=== PATIENT | male | born 1960 | race Caucasian/White ===

== ENCOUNTER 2022-03-07 00:15 | Inpatient (IN) ==
[2022-03-07] MEDS ORDERED: SODIUM CHLORIDE 0.9% 1000ML 500 ML IV ONE (00:32)
--- NOTE | 2022-03-07 00:34 | Emergency Department Note ---
Impression & Plan Altered mental status ADMIT ED Provider Note HPI: The patient is a 61-year-old male with history of CVA, who presents the emergency department with a chief complaint of confusion. 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 He was sending cars through and they were not supposed to be going through, he seemed slow to respond to questions and generally just did not seem to be himself. He does have a history of a recent CVA that he tells me was in February 2022, he received care at that time at [facility] in [place] and he tells me he did have a carotid stent placed. On arrival here to the ED the patient is slow to respond to some of my questions but he is alert and oriented, he does not exhibit any focal deficits on arrival. He is hypertensive at 175/101 but otherwise hemodynamically stable on arrival, patient denies any alcohol or drug use. ROS: -Neuro: Altered mental status/confusion *10 point review systems was conducted and is otherwise negative unless stated above *Outpatient medications and allergy history reviewed PE: General: Alert, NAD HEENT: Normocephalic, atraumatic Eyes: Extraocular eye movement is intact, no scleral erythema Pulmonary: Clear to auscultation bilaterally, no wheezing Cardio: Regular rate and rhythm GI: Abdomen is soft, nontender : No suprapubic tenderness MSK: No evidence of trauma or malformation of the extremities, no edema Skin: No evidence of rash Neuro: Alert, no focal deficits no ataxia on [id number] testing bilaterally, symmetrical facial movements are appreciated Psychiatric: Cooperative cafeteria monitor: - An order was placed for continuous cardiac monitoring - Patient was noted to be in rhythm with a rate of 70 EKG: Rate: 80 Rhythm: Sinus rhythm Intervals: Within normal limits ST changes: No ST elevation Time: 0023 NIH STROKE SCALE: 1A: Level of consciousness Alert; keenly responsive 0 1B: Ask month and age Both questions right 0 1C: 'Blink eyes' & 'squeeze hands' Performs both tasks 0 2: Horizontal extraocular movements Normal 0 3: Visual galicia No visual loss 0 4: Facial palsy Normal symmetry 0 5A: Left arm motor drift No drift for 10 seconds 0 5B: Right arm motor drift No drift for 10 seconds 0 6A: Left leg motor drift No drift for 5 seconds 0 6B: Right leg motor drift No drift for 5 seconds 0 7: Limb Ataxia No ataxia 0 8: Sensation Normal; no sensory loss 0 9: Language/aphasia Normal; no aphasia 0 10: Dysarthria Normal 0 11: Extinction/inattention No abnormality 0 TOTAL NIH SCORE =0 Preliminary Findings Only See Final Report For Complete Findings CT HEAD: No intracranial hemorrhage. Encephalomalacia involving the left parietal and occipital regions is presumed subacute to chronic. No significant mass effect or midline shift. No ventriculomegaly. Paranasal sinuses and mastoid air cells are well-aerated. Radiologist: Efren Lockett MD CTA HEAD: Atherosclerotic changes of the cavernous and supraclinoid internal carotid a rteries. The arteries are patent. There is asymmetric 50% luminal narrowing of the distal supraclinoid left internal carotid artery. No dissection or occlusion. The left M1 segment and distal middle cerebral branches are patent. The A1 segments and anterior cerebral arteries are patent. The right M1 segment and distal middle cerebral branches are patent. The distal left vertebral artery is small in caliber and predominantly terminates at the inferior left cerebellum. The distal right vertebral artery is dominant and feeds the basilar artery. The posterior cerebral arteries are patent. A small right posterior communicating artery suggested. No abnormal parenchymal enhancement. The visualized dural sinuses are unremarkable. Radiologist: Efren Lockett MD CTA NECK: Limited by a swallowing/motion artifact with significant image degradation through the mid to superior cervical region. There is a long stent extending from the carotid bifurcation throughout the cervical left internal carotid artery, which is patent. The common carotid arteries are patent. The right carotid bifurcation is limited by artifact without obvious occlusion or critical stenosis. Atherosclerotic changes are suggested. The right internal carotid artery otherwise appears to be widely patent. The vertebral arteries are patent with the right vertebral artery dominant. No dissection or narrowing. The aortic arch demonstrates atherosclerotic changes. There is mild narrowing of the ostium of the left common carotid artery. Fibrotic changes in the posterior medial aspect of the left upper lobe and bilateral apical capping noted. Radiologist: Efren Lockett MD Study ready at 01:52 and initial results transmitted at 02:06 Communications: Clear Time Type Notes 03/07/22 02:[address] prasanth, called Dr. Moreland on 03/07 02:14 (- 04:00) Medical Decision Making: The patient is a 61-year-old gentleman with history of CVA, peripheral vascular disease, had a carotid stent placed after a stroke in February 2022 at [facility] in [place], presented to the emergency department with some altered mental status that was noted by his coworkers on a road crew. On arrival here to the ED the patient is slow to respond to my questions but he does not have any focal deficits. His symptoms are unclear in onset, he is not considered a tPA candidate, patient tells me he does not remember what happened today at work and he is a somewhat limited historian. CT imaging of the head as well as CT angiography did not show any evidence of acute intracranial bleeding, no evidence of large vessel occlusion. Patient's previous carotid stent appears to be patent. There is mention of some subacute appearing encephalomalacia on CT imaging of the head without contrast. There is also noted atherosclerotic changes on CTA of the head. Lab work is otherwise largely unremarkable, alcohol level is negative. Patient was given aspirin in the ED, on my reassessment he is resting comfortably in bed and remains hemodynamically stable. I feel he may have had a TIA or possibly a small stroke that are causing his symptoms. He has multiple risk factors obviously with recent TIA and imaging findings of atherosclerosis on CTA. I discussed the above findings with the on-call hospitalist for [facility], Dr. García, and the patient was admitted to a telemetry bed in stable condition for further care and MRI imaging to be obtained. Diagnosis: 1. Transient altered mental status 2. Strokelike symptoms 3. Bilateral sclerosis of the intracranial vessels 4. Subacute encephalomalacia on CT imaging of the head Disposition: ADMIT Juliano Moreland, DO Emergency Medicine Past Med/Surg History Social History Smoking Status: Current every day smoker Preferred Language: Telugu Feels Safe at Home: Yes Results & Data (ED) Vital Signs Vital Signs - 24 hr 03/07/22 00:22 03/07/22 00:24 03/07/22 02:22 Temperature 36.7 C Temperature Source Oral Pulse Rate 87 Pulse Rate [Finger] 66 Respiratory Rate 22 18 Blood Pressure 175/101 H Blood Pressure [Right Arm] 160/91 H Blood Pressure Mean 125 Blood Pressure Mean [Right Arm] 114 Pulse Oximetry 98 97 99 Oxygen Delivery Method Room Air Room Air Room Air Sepsis Recent Fever Within 48 Hours No Sepsis New/Unexplained Change in Mental Status N/A Sepsis Action Taken by Nursing No Action Required Laboratory Data Result diagrams: 03/07/22 00:21 03/07/22 00:21 Lab Results 03/07/22 03/07/22 03/07/22 Range/Units 00:21 00:21 00:21 WBC 8.70 (4.8-10.8) K/ul RBC 4.46 L (4.63-6.08) M/uL Hgb 14.8 (14.0-18.0) g/dl Hct 44.3 (40.1-51.0) % MCV 99.3 (80.0-100.0) fL MCH 33.2 (25.0-34.0) pg MCHC 33.4 (32.0-36.0) g/dL RDW Std Deviation 51.3 H (36.4-46.3) fL RDW Coeff of Ted 13.9 (11.5-14.5) % Plt Count 236 (130-400) K/uL MPV 12.8 H (9.4-12.4) fL Immature Gran % (Auto) 0.2 % Neut % (Auto) 60.0 % Lymph % (Auto) 26.3 % [place] % (Auto) 11.3 % Eos % (Auto) 1.4 % Baso % (Auto) 0.8 % Neut # (Auto) 5.22 (1.4-6.5) K/uL Lymph # (Auto) 2.29 (1.2-3.4) K/uL [place] # (Auto) 0.98 H (0.24-0.82) K/uL Eos # (Auto) 0.12 (0-0.50) K/uL Baso # (Auto) 0.07 (0-0.2) K/uL Immature Gran # (Auto) 0.02 (0.00-0.02) K/uL PT 10.3 (9.0-12.0) Seconds INR 1.0 (0.9-1.1) APTT 24.2 (21.0-31.0) Seconds PTT Ratio 0.9 Sodium 136 (136-145) mmol/L Potassium 3.9 (3.5-5.1) mmol/L Chloride 102 (98-107) mmol/L Carbon Dioxide 25 (21-32) mmol/L Anion Gap 9 (3-11) BUN 33 H (6-23) mg/dl Creatinine 0.97 (0.6-1.4) mg/dl Est Cr Clr Drug Dosing 59.1 ml/min Est GFR ( Amer) 97.9 ml/min Est GFR (Non-Af Amer) 84.5 ml/min BUN/Creatinine Ratio 34.0 H (10-20) Glucose 90 (70-99(Fasting)) mg/dl POC Glucose (70-99) mg/dl Calcium 9.7 (8.5-10.1) mg/dl Magnesium 2.1 (1.7-2.4) mg/dl Total Bilirubin 0.7 (0.2-1.0) mg/dl AST 22 (13-39) U/L ALT 20 (7-52) U/L Alkaline Phosphatase 55 (34-104) U/L Ammonia (18-72) umol/L Troponin I High Sens 6.4 (0-20) pg/ml Total Protein 7.1 (6.0-8.3) gm/dl Albumin 4.5 (3.4-5.0) gm/dl Globulin 2.6 (2.5-4.0) gm/dl Albumin/Globulin Ratio 1.7 (0.9-2) Urine Color Urine Appearance (Clear) Urine pH (4.5-7.5) Ur Specific [place] (1.000-1.030) Urine Protein (Negative) Urine Glucose (UA) (Negative) Urine Ketones (Negative) Urine Blood (Negative) Urine Nitrite (Negative) Urine Bilirubin (Negative) Urine Urobilinogen (Negative) Ur Leukocyte Esterase (Negative) Urine Opiates Screen (Neg) Ur Methadone, Qual (Neg) Urine Barbiturates (Neg) Ur Phencyclidine (PCP) (Neg) U Amphetamin/Meth Scrn (Neg) MDMA (Ecstasy) Screen (Neg) U Benzodiazepines Scrn (Neg) Ur Cocaine Metabolite (Neg) U Marijuana (THC) Screen (Neg) Ethyl Alcohol mg/dL (<10.0) mg/dl SARS-CoV-2, RNA, NAAT (NEGATIVE) 03/07/22 03/07/22 03/07/22 Range/Units 00:37 00:37 00:37 WBC (4.8-10.8) K/ul RBC (4.63-6.08) M/uL Hgb (14.0-18.0) g/dl Hct (40.1-51.0) % MCV (80.0-100.0) fL MCH (25.0-34.0) pg MCHC (32.0-36.0) g/dL RDW Std Deviation (36.4-46.3) fL RDW Coeff of Ted (11.5-14.5) % Plt Count (130-400) K/uL MPV (9.4-12.4) fL Immature Gran % (Auto) % Neut % (Auto) % Lymph % (Auto) % [place] % (Auto) % Eos % (Auto) % Baso % (Auto) % Neut # (Auto) (1.4-6.5) K/uL Lymph # (Auto) (1.2-3.4) K/uL [place] # (Auto) (0.24-0.82) K/uL Eos # (Auto) (0-0.50) K/uL Baso # (Auto) (0-0.2) K/uL Immature Gran # (Auto) (0.00-0.02) K/uL PT (9.0-12.0) Seconds INR (0.9-1.1) APTT (21.0-31.0) Seconds PTT Ratio Sodium (136-145) mmol/L Potassium (3.5-5.1) mmol/L Chloride (98-107) mmol/L Carbon Dioxide (21-32) mmol/L Anion Gap (3-11) BUN (6-23) mg/dl Creatinine (0.6-1.4) mg/dl Est Cr Clr Drug Dosing ml/min Est GFR ( Amer) ml/min Est GFR (Non-Af Amer) ml/min BUN/Creatinine Ratio (10-20) Glucose (70-99(Fasting)) mg/dl POC Glucose (70-99) mg/dl Calcium (8.5-10.1) mg/dl Magnesium (1.7-2.4) mg/dl Total Bilirubin (0.2-1.0) mg/dl AST (13-39) U/L ALT (7-52) U/L Alkaline Phosphatase (34-104) U/L Ammonia (18-72) umol/L Troponin I High Sens (0-20) pg/ml Total Protein (6.0-8.3) gm/dl Albumin (3.4-5.0) gm/dl Globulin (2.5-4.0) gm/dl Albumin/Globulin Ratio (0.9-2) Urine Color Yellow Urine Appearance Clear (Clear) Urine pH 5.5 (4.5-7.5) Ur Specific [place] 1.018 (1.000-1.030) Urine Protein Negative (Negative) Urine Glucose (UA) Negative (Negative) Urine Ketones Negative (Negative) Urine Blood Negative (Negative) Urine Nitrite Negative (Negative) Urine Bilirubin Negative (Negative) Urine Urobilinogen Negative (Negative) Ur Leukocyte Esterase Negative (Negative) Urine Opiates Screen Neg (Neg) Ur Methadone, Qual Neg (Neg) Urine Barbiturates Neg (Neg) Ur Phencyclidine (PCP) Neg (Neg) U Amphetamin/Meth Scrn Neg (Neg) MDMA (Ecstasy) Screen Neg (Neg) U Benzodiazepines Scrn Neg (Neg) Ur Cocaine Metabolite Neg (Neg) U Marijuana (THC) Screen Neg (Neg) Ethyl Alcohol mg/dL < 10.0 (<10.0) mg/dl SARS-CoV-2, RNA, NAAT (NEGATIVE) 03/07/22 03/07/22 03/07/22 Range/Units 00:45 00:46 02:43 WBC (4.8-10.8) K/ul RBC (4.63-6.08) M/uL Hgb (14.0-18.0) g/dl Hct (40.1-51.0) % MCV (80.0-100.0) fL MCH (25.0-34.0) pg MCHC (32.0-36.0) g/dL RDW Std Deviation (36.4-46.3) fL RDW Coeff of Ted (11.5-14.5) % Plt Count (130-400) K/uL MPV (9.4-12.4) fL Immature Gran % (Auto) % Neut % (Auto) % Lymph % (Auto) % [place] % (Auto) % Eos % (Auto) % Baso % (Auto) % Neut # (Auto) (1.4-6.5) K/uL Lymph # (Auto) (1.2-3.4) K/uL [place] # (Auto) (0.24-0.82) K/uL Eos # (Auto) (0-0.50) K/uL Baso # (Auto) (0-0.2) K/uL Immature Gran # (Auto) (0.00-0.02) K/uL PT (9.0-12.0) Seconds INR (0.9-1.1) APTT (21.0-31.0) Seconds PTT Ratio Sodium (136-145) mmol/L Potassium (3.5-5.1) mmol/L Chloride (98-107) mmol/L Carbon Dioxide (21-32) mmol/L Anion Gap (3-11) BUN (6-23) mg/dl Creatinine (0.6-1.4) mg/dl Est Cr Clr Drug Dosing ml/min Est GFR ( Amer) ml/min Est GFR (Non-Af Amer) ml/min BUN/Creatinine Ratio (10-20) Glucose (70-99(Fasting)) mg/dl POC Glucose 92 (70-99) mg/dl Calcium (8.5-10.1) mg/dl Magnesium (1.7-2.4) mg/dl Total Bilirubin (0.2-1.0) mg/dl AST (13-39) U/L ALT (7-52) U/L Alkaline Phosphatase (34-104) U/L Ammonia 19.0 (18-72) umol/L Troponin I High Sens (0-20) pg/ml Total Protein (6.0-8.3) gm/dl Albumin (3.4-5.0) gm/dl Globulin (2.5-4.0) gm/dl Albumin/Globulin Ratio (0.9-2) Urine Color Urine Appearance (Clear) Urine pH (4.5-7.5) Ur Specific [place] (1.000-1.030) Urine Protein (Negative) Urine Glucose (UA) (Negative) Urine Ketones (Negative) Urine Blood (Negative) Urine Nitrite (Negative) Urine Bilirubin (Negative) Urine Urobilinogen (Negative) Ur Leukocyte Esterase (Negative) Urine Opiates Screen (Neg) Ur Methadone, Qual (Neg) Urine Barbiturates (Neg) Ur Phencyclidine (PCP) (Neg) U Amphetamin/Meth Scrn (Neg) MDMA (Ecstasy) Screen (Neg) U Benzodiazepines Scrn (Neg) Ur Cocaine Metabolite (Neg) U Marijuana (THC) Screen (Neg) Ethyl Alcohol mg/dL (<10.0) mg/dl SARS-CoV-2, RNA, NAAT NEGATIVE (NEGATIVE) Administered Medications Discontinued Medications Aspirin (Aspirin Chew 324 Mg) 324 mg PO NOW STA Stop: 03/07/22 02:36 Last Admin: 03/07/22 02:48 Dose: 324 mg Documented By: ALESSIO Sodium Chloride (Nss 1000ml) 500 mls @ 999 mls/hr IV .Q31M ONE Stop: 03/07/22 01:02 Last Infusion: 03/07/22 02:44 Dose: 0 mls/hr Documented By: Admin: 03/07/22 01:51 Dose: 999 mls/hr Documented By: ALESSIO Ioversol (Optiray 300 500ml) 125 ml IV ONCE ONE Stop: 03/07/22 01:44 Last Admin: 03/07/22 01:44 Dose: 113 ml Documented By: PING Discharge Plan Visit Data Chief Complaint: Altered Mental Status ED Provider: Juliano Moreland Discharge Problem: Altered mental status Forms Stand Alone Forms: [facility] Referrals Referrals: PCP,NO [Primary Care Provider] - : Altered mental status Qualifiers: Altered mental status type: transient alteration of awareness Qualified Code(s): R40.4 - Transient alteration of awareness
[2022-03-07 00:54] LABS: Basophils # (auto) 0.07 K/uL (0-0.2); Basophils % (auto) 0.8 %; Eosinophils # (auto) 0.12 K/uL (0-0.50); Eosinophils % (auto) 1.4 %; Hematocrit (blood only) 44.3 % (40.1-51.0); Hemoglobin 14.8 g/dl (14.0-18.0); Immature Granulocytes # (auto) 0.02 K/uL (0.00-0.02); Immature Granulocytes % (auto) 0.2 %; Lymphocytes # (auto) 2.29 K/uL (1.2-3.4); Lymphocytes % (auto) 26.3 %; Mean Corpuscular Hemoglobin 33.2 pg (25.0-34.0); Mean Corpuscular Hgb Conc 33.4 g/dL (32.0-36.0); Mean Corpuscular Volume 99.3 fL (80.0-100.0); Mean Platelet Volume 12.8 fL (9.4-12.4); Monocytes # (auto) 0.98 K/uL (0.24-0.82); Monocytes % (auto) 11.3 %; Neutrophils # (auto) 5.22 K/uL (1.4-6.5); Platelet Count 236 K/uL (130-400); RDW Coefficient of Variation 13.9 % (11.5-14.5); RDW Standard Deviation 51.3 fL (36.4-46.3); Red Blood Count 4.46 M/uL (4.63-6.08)
[2022-03-07 00:55] LABS: Appearance Urine Clear (Clear); Bilirubin Urine Negative (Negative); Blood Urine Negative (Negative); Color Urine Yellow; Glucose Urine UA Negative (Negative); Ketones Urine Negative (Negative); Leukocyte Esterase Urine Negative (Negative); Nitrite Urine Negative (Negative); Protein Urine Negative (Negative); Specific Gravity Urine 1.018 (1.000-1.030); Urobilinogen Urine Negative (Negative); pH Urine 5.5 (4.5-7.5)
[2022-03-07 01:05] LABS: Partial Thromboplastin Ratio 0.9; Partial Thromboplastin Time 24.2 Seconds (21.0-31.0); Prothrombin Time 10.3 Seconds (9.0-12.0)
[2022-03-07 01:11] LABS: Troponin I High Sensitivity 6.4 pg/ml (0-20)
[2022-03-07 01:16] LABS: Albumin Globulin Ratio 1.7 (0.9-2); Albumin Level 4.5 gm/dl (3.4-5.0); Bilirubin,Total 0.7 mg/dl (0.2-1.0); Calcium 9.7 mg/dl (8.5-10.1); Creatinine Clr Calc Pharmacy 59.1 ml/min; Est GFR (African American) 97.9 ml/min; Est GFR (Non-African American) 84.5 ml/min; Globulin 2.6 gm/dl (2.5-4.0); Magnesium 2.1 mg/dl (1.7-2.4); Potassium 3.9 mmol/L (3.5-5.1); Total Protein 7.1 gm/dl (6.0-8.3)
[2022-03-07 01:18] LABS: Amphetamines+Metham, Urine Neg (Neg); Barbiturates, Urine Neg (Neg); Benzodiazepine, Urine Neg (Neg); Cocaine, Urine Neg (Neg); MDMA (Ecstacy), Urine Neg (Neg); Methadone, Urine Neg (Neg); Opiate, Urine Neg (Neg); Phencyclidine, Urine Neg (Neg)
[2022-03-07] MEDS ORDERED: OPTIRAY 300 500mL IV ONE (01:43)
[2022-03-07] MEDS ORDERED: ASPIRIN CHEW 324 MG PO STA (02:35)
[2022-03-07] MEDS ORDERED: PHARMACIST DISCHARGE MED REC CONSULT PRN (04:39)
[2022-03-07] MEDS ORDERED: ACETAMINOPHEN 325 MG TAB PO PRN (04:39)
[2022-03-07] MEDS ORDERED: NITROGLYCERIN SL 0.4 MG/TAB TAB SL PRN (04:39)
[2022-03-07] MEDS ORDERED: POLYETHYLENE (MIRALAX) 17 GM PACK PO PRN (04:39)
[2022-03-07] MEDS: SODIUM CHLORIDE 0.45 % 1,000 ML IV SCH ×2 (05:22→15:59)
[2022-03-07 05:48] LABS: Basophils # (auto) 0.06 K/uL (0-0.2); Basophils % (auto) 0.8 %; Eosinophils % (auto) 1.3 %; Hematocrit (blood only) 41.4 % (40.1-51.0); Hemoglobin 14.1 g/dl (14.0-18.0); Immature Granulocytes # (auto) 0.02 K/uL (0.00-0.02); Immature Granulocytes % (auto) 0.3 %; Lymphocytes # (auto) 2.34 K/uL (1.2-3.4); Lymphocytes % (auto) 30.7 %; Mean Corpuscular Hemoglobin 32.8 pg (25.0-34.0); Mean Corpuscular Hgb Conc 34.1 g/dL (32.0-36.0); Mean Corpuscular Volume 96.3 fL (80.0-100.0); Monocytes # (auto) 0.75 K/uL (0.24-0.82); Monocytes % (auto) 9.9 %; Neutrophils # (auto) 4.34 K/uL (1.4-6.5); Platelet Count 213 K/uL (130-400); RDW Coefficient of Variation 14.1 % (11.5-14.5); RDW Standard Deviation 50.3 fL (36.4-46.3); White Blood Count 7.61 K/ul (4.8-10.8)
--- NOTE | 2022-03-07 06:15 | History and Physical Report ---
DATE OF ADMISSION: 03/07/2022. CHIEF COMPLAINT: Altered mental status. HISTORY OF PRESENT ILLNESS: This is a 61-year-old male with past medical history significant for CVA, hyperlipidemia, was brought in because of altered mental status. 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 He was sending cars through that were not supposed to be going through, seems slow to respond to questions that is the reason he was brought in here. The patient had a stroke last year. He was in [place], he was transferred from [facility] to [place] at that time. He has acute left MCA stroke and also left internal carotid artery occlusion. The patient presented with speech difficulties and right sided weakness, a stroke alert was called and was found to have a left ICA occlusion on CTA and Neurosurgery was consulted and transferred to [facility] for mechanical thrombectomy. Admitted to [facility] on 02/27/2021, was noted to have a total occlusion of left internal carotid artery with good collaterals. No intervention was done. Transferred to ICU for close observation and by next day morning on 02/28/2021 and 03/01/2021 patient remained stable, but on 03/02/2021 patient had severe aphasia and right hemiplegia, with redemonstration of LICA occlusion and concern for distal LICA M1 thromboembolism on CTA. The patient was emergently taken to OR and underwent angioplasty and stenting x2 of left ICA and mechanical thrombectomy of both left ICA and left M1 with revascularization. The patient started on aspirin and Plavix half tablet and to continue Lipitor and dysphagia diet. Currently, patient is taking Plavix half tablet q. 72 hours. The patient says his speech is improved since then. He is eating whatever he wants and swallowing okay. Thinks today his confusion could be from dehydration, but he is not drinking much water. Currently, resting comfortably, hemodynamically stable but sometimes he has difficulty speaking, but able to answer questions appropriately. Denies any headache, denies any dizziness, denies having blurred visions. No earache, no runny nose, no sore throat, no cough, no fever, no chills, no chest pain, no shortness of breath, no nausea, no abdominal pain. Normal bowel and bladder movements. Denies any blood in stool or black stools. Denies any hematuria. No swelling in the legs. Currently smoking half pack of cigarettes daily. ALLERGIES: No known drug allergies. PAST MEDICAL HISTORY: As mentioned above. PAST SURGICAL HISTORY: Catheter placement in internal carotid artery, mechanical thrombectomy, Vertebral artery Catheter placement MEDICATIONS: The patient is on aspirin 325 mg p.o. daily, atorvastatin 40 mg p.o. daily, Plavix 37.5 mg p.o. q. 72 hours. FAMILY HISTORY: Significant for father had stroke. SOCIAL HISTORY: Currently smokes half pack a day. No alcohol, no drug use. REVIEW OF SYSTEMS: As per HPI. Rest of the review of systems is negative. PHYSICAL EXAMINATION: GENERAL: The patient is thin and frail, not in acute distress. VITAL SIGNS: Temperature 36.7, pulse 66, respiratory rate 18, blood pressure 160/91, oxygen 99% on room air. HEENT: Pupils equal, round and reactive to light. Extraocular muscles intact. No facial droop. Oral mucosa moist. NECK: No JVD. No masses. CARDIOVASCULAR: S1 and S2 heard. Regular rate and rhythm. No murmur, no gallop. RESPIRATORY SYSTEM: Normal AP diameter. No accessory muscle use. No wheezing, no crackles. ABDOMEN: Soft, bowel sounds present, nontender, no distention. CENTRAL NERVOUS SYSTEM: Alert, awake, and oriented x3. Extraocular muscles intact. No facial droop. Speech is was clear. Insight is okay. Obeys commands. Power 5/5 in all extremities. No pronator drift. Coordination of movements normal. Sensation is intact. Position sense intact. EXTREMITIES: No edema, no erythema. LABORATORY DATA: WBC 8.7, hemoglobin 14.8, hematocrit 44.3, platelets 236. PT 10.3, INR 1, APTT 24.2. Sodium 136, potassium 3.9, chloride 102, bicarbonate 25, BUN 33, creatinine 0.9, serum glucose 90, calcium 9.7, magnesium 2.1, total bilirubin 0.7, AST 22, ALT 22, , alkaline phosphatase 55. Ammonia 19. Troponin-I high sensitivity 6.4. Urinalysis negative. Urine drug screen negative. SARS-CoV-2 rapid test negative. IMAGING DATA: Preliminary report: CTA head and of the neck. There is a long stent extending from the carotid bifurcation throughout cervical left internal carotid artery, which is patent. The common carotid arteries are patent. The right carotid bifurcation is limited by artifact without obvious occlusion or critical stenosis. Right internal carotid artery appears widely patent, vertebral arteries are patent. No dissection or narrowing. CT of the head, preliminary report, no intracranial hemorrhage, encephalomalacia involving the left parietal and occipital region subacute to chronic. No significant mass effect or midline shift. No ventriculomegaly. ECG: Sinus rhythm with sinus arrhythmia with short TX with rate of 80, no previous ECGs available. ASSESSMENT AND PLAN: This 61-year-old male presents with confusion, questionable stroke-like symptoms. 1. Confusion, questionable stroke-like symptoms, possible transient ischemic attack, currently back to his baseline. The patient had left MCA stroke in February of last year while in [place] and also had left internal carotid occlusion. The patient is status post angioplasty and stenting x2 of the left ICA and mechanical thrombectomy of both left ICA and left M1 on aspirin 325 mg, Plavix 75 mg half tab p.o. q. 72 hours and statin. Follow final report of imaging studies. We will follow up with MRI scan. The patient thinks his symptoms could be from dehydration, placed on gentle fluids. We will get neuro evaluation in the a.m. We will keep him n.p.o. until evaluated by speech, PT/OT. Monitor in the med tele. 2. Hyperlipidemia: Continue statin. Follow lipid profile. 3. Tobacco abuse: Needs counseling. 4. Hypertension: Currently, blood pressure is 160/91, could be situational. We will allow permissive hypertension for now. If needed, we may need to start on antihypertensives. Follow up with PCP. 7. Deep venous thrombosis prophylaxis: Sequential compression devices for now. DISPOSITION: Admit to Med/tele. PT/OT prior to discharge. Social service to help with discharge planning. Level 1 full code. Job ID: [id number] [facility]
[2022-03-07 06:17] LABS: BUN Creatinine Ratio 34.6 (10-20); Calcium 8.9 mg/dl (8.5-10.1); Chol HDL Ratio 3.3 (0-5); Creatinine Clr Calc Pharmacy 73.5 ml/min; Est GFR (African American) 113.7 ml/min; Est GFR (Non-African American) 98.1 ml/min; Potassium 4.2 mmol/L (3.5-5.1)
--- NOTE | 2022-03-07 07:21 | CT Scan Report ---
UNENHANCED CT OF THE BRAIN; CT ANGIOGRAM OF THE BRAIN; CT ANGIOGRAM OF THE NECK CLINICAL HISTORY: Strokelike symptoms. COMPARISON STUDY: No priors. TECHNIQUE: Unenhanced axial CT scan of the brain is performed. Subsequently, following the IV adminis tration of 113 of [address] 300, CT angiogram of the head and neck was performed from the aortic arch t o the vertex. Images are reviewed in the axial, sagittal, and coronal planes. 3-D MIPS images are cre ated and assessed. IV contrast was administered without complication. All measurements were calculate d based on NASCET criteria. A dose lowering technique was utilized adhering to the principles of ALA RA. The examinations are significantly degraded by motion artifact. CT DOSE: 1169.46 mGy.cm FINDINGS: Brain parenchyma: Foci of left posterior parietal and left occipital encephalomalacia are consistent with remote infarcts. There is age-related involutional change noting mild subcortical and periventri cular microangiopathic disease. A chronic lacunar infarct is noted in the left fajardo radiata. There is no hemorrhage, mass effect, or evidence of acute territorial ischemia by CT criteria. There is no evidence of enhancing mass lesion on the angiogram phase images. The ventricles, sulci, and cisterns are normal in configuration. Ledesma-white matter differentiation is preserved. No extra-axial fluid col lection is seen. Thoracic aorta: There is atherosclerotic calcification of the thoracic aorta. Visualized portions of the thoracic aorta are normal in caliber. The aortic arch demonstrates standard 3-vessel anatomy. Right carotid arterial system: Atherosclerotic plaque causes less than 50% stenosis of the proximal r ight common carotid artery is seen on image #82. The remainder of the right common carotid artery is widely patent atherosclerotic plaque causes approximately 50% stenosis of the proximal right internal carotid artery is seen on image #249. This is difficult to assess due to significant motion artifact . The remainder of the internal carotid artery is widely patent, as is the external carotid artery. Left carotid arterial system: The left common carotid artery is widely patent, as are the left international sourcing manager al and external carotid arteries. A stent is noted in the left ICA. Vertebral arteries: There is high-grade stenosis at the origin of the left vertebral artery. The vert ebral arteries are otherwise widely patent in the neck bilaterally. The right vertebral artery is dom inant and the left vertebral artery is diminutive. Subclavian arteries: Widely patent bilaterally. Atherosclerotic plaque is seen in the left subclavian artery below the thoracic outlet. Intracranial vasculature: There is atherosclerotic calcification of the cavernous carotid and vertebr al arteries. The [place] is developmentally complete. The internal carotid arteries are dodd nt at the skull base, as are the anterior and middle cerebral arteries bilaterally. There is at least mild stenosis the intracranial internal carotid arteries bilaterally. There is high-grade stenosis w ith near complete to complete occlusion of the intracranial left vertebral artery at the skull base s een on image #305 with only trace flow. There is thready flow distal to this. The intracranial left v ertebral artery is diminutive. The right vertebral artery is dominant and widely patent, as is the ba silar artery. The posterior cerebral arteries are patent. There is no aneurysm seen throughout the in tracranial circulation. Jugular veins: Patent bilaterally. Dural sinuses: Patent. Lung apices: Emphysematous change is noted. Scarring/fibrosis is seen posteriorly left upper lobe and there is apical pleural-parenchymal change. An indeterminant 8 mm linear density at the right apex i s seen on image #53. Soft tissues: The visualized pharyngeal soft tissues are normal in appearance noting angiographic pha se technique. The oropharyngeal airway appears widely patent. The salivary and thyroid glands are nor mal in appearance. No cervical lymphadenopathy is seen. Skeletal structures: The skeletal structures are osteopenic. The calvarium appears intact. The cervic al spine is maintained noting multilevel spondylosis. No lytic or blastic lesion is seen. Orbits: The bony orbits are intact. Orbital contents are normal as visualized. Sinuses and mastoids: The paranasal sinuses are clear. The mastoid air cells are well pneumatized. IMPRESSION: 1. Chronic infarcts as above with no hemorrhage, mass effect, or evidence of acute territorial ischem ia by CT criteria. 2. The CT angiogram of the neck is significantly degraded by motion artifact. 3. There is less than 50% stenosis of the proximal right common carotid artery. 4. There is approximately 50% stenosis at the origin of the right internal carotid artery. Evaluation at this level is severely degraded by motion artifact. 5. A left internal carotid artery stent is patent. 6. There is high-grade stenosis at the origin of the diminutive left vertebral artery. 7. 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 8. The dominant right vertebral artery is widely patent. 9. There is mild stenosis of both internal carotid arteries at the skull base. 10. No aneurysm is seen. 11. Emphysema. 12. An 8 mm linear nodular density is seen in the right upper lobe. A follow-up chest CT in 3 months time is recommended for reevaluation and full assessment of the thorax. ACT 112: Positive. There are findings on this exam that require communication between the performing entity and the patient following Patient Test Result Information Act ([place] Act 112) guidelines. Electronically signed by: Roc Sanchez M.D. 03/07/2022 7:20 AM
[2022-03-07 07:40] LABS: Estimated Average Glucose 123 mg/dl; Hemoglobin A1C 5.9 % (4.5-5.6)
[2022-03-07] MEDS ORDERED: GADOBUTROL 65ML VIAL IV ONE (07:55)
--- NOTE | 2022-03-07 08:41 | Magnetic Resonance Report ---
MRI OF THE BRAIN COMBO CLINICAL HISTORY: Strokelike symptoms. Slurred speech. Left-sided weakness. COMPARISON STUDY: CT of the brain performed the same day 03/07/2022. TECHNIQUE: MRI of the brain was performed utilizing various T1 and T2-weighted sequences in the axial , sagittal, and coronal planes. Contrast-enhanced sequences were acquired following the administratio n of 5 cc of Gadavist. FINDINGS: Brain parenchyma: Foci of left posterior parietal and left occipital encephalomalacia are consistent with remote infarcts. Chronic lacunar infarcts are noted in the left fajardo radiata and the left cere bellar hemisphere. There is no hemorrhage or mass effect. There is no restricted diffusion typical fo r acute ischemia. No enhancing mass lesion is identified on the postcontrast images. There is age-rel ated involutional change noting mild subcortical and periventricular microangiopathic disease. A tiny focus of mineralization is noted in the left thalamus. Ledesma-white matter differentiation is preserve d. No extra-axial fluid collection is seen. The cerebellar tonsils are normal in configuration. Ventricles, sulci, and cisterns: Prominent secondary to involutional change. Cavum septum pellucidum is incidentally noted. Pituitary and sella: Unremarkable. Intracranial vasculature: Normal flow voids are maintained at the skull base. Orbits: The bony orbits are grossly intact. Orbital contents are normal in appearance. Sinuses and mastoids: Clear. Calvarium: Unremarkable. Cervical cord: Partially visualized cervical spinal cord is normal in morphology and signal intensity . IMPRESSION: No acute intracranial abnormality. ACT 112: Negative or not required by law. Electronically signed by: Roc Sanchez M.D. 03/07/2022 8:40 AM
[2022-03-07] MEDS ORDERED: ATORVASTATIN 40 MG TAB PO SCH (09:00)
[2022-03-07] MEDS ORDERED: CLOPIDOGREL BISULFATE 75 MG TAB PO SCH (09:00)
[2022-03-07] MEDS ORDERED: ASPIRIN 325 MG ECTAB PO SCH (09:00)
--- NOTE | 2022-03-07 09:35 | Electrocardiogram Report ---
Test Reason : Blood Pressure : / mmHG Vent. Rate : 080 BPM Atrial Rate : 080 BPM P-R Int : 090 ms QRS Dur : 082 ms QT Int : 362 ms P-R-T Axes : 045 084 078 degrees QTc Int : 417 ms Sinus rhythm with sinus arrhythmia with short MA Otherwise normal ECG No previous ECGs available Confirmed by Tolu Bean ([id number]) on 03/07/2022 9:35:12 AM Referred By: REFERRED SELF Confirmed By:Tolu Bean
[2022-03-07] MEDS ORDERED: NICOTINE 14 MG/24 HR PATCH TD SCH (16:15)
--- NOTE | 2022-03-07 16:49 | Neurology Consultation ---
Date of Consultation March 07, 2022 Assessment & Plan (1) Altered mental status: Plan ASSESSMENT and PLAN: 1. 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 There was no other neurological symptoms. Since admission, the patient has been stable. Stroke work-up including brain MRI have been unremarkable. The patient has been compliant on his home medications. He has not had any new neurological symptoms while he has been in hospital. He is back to his baseline. Plan: The patient will continue using antiplatelet and antilipid medications as before. Goal blood pressure is below 130/80. Goal LDL level is lower than 70. Good hydration and sleep hygiene is explained and recommend the patient. If the patient experiences any new neurological symptoms, then he should go to emergency department without waiting. Stroke risk factors and symptoms are explained to the patient. Cessation of smoking is strongly recommended. The patient should be excused from work for 3 days. He is neurologically stable and can be discharged home. Follow-up at neurology clinic in a month. 2. History of cerebrovascular accident Impression: The patient had left MCA territory ischemic stroke approximately a year ago, and has recovered well. He had thrombectomy, and left internal carotid artery stent placement done. Since then, he has been on daily aspirin, low-dose Plavix, and Crestor. The patient reports being stable on current treatment. Other than intermittent word finding difficulty, he denies any residual neurological deficit from stroke. Plan: As seen above. Thank you for the consultation. History of Present Illness Reason for Consultation: Confusional episode Requesting Physician: Reynold Sweet MD Attending Physician: Reynold Sweet MD History of Present Illness The patient is a 61-year-old pleasant gentleman, who was brought to emergency department last night, after they noticed that the patient was somewhat confused and disoriented. 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 He was kind of sleepy, and was not eating and drinking well. He denies having any similar episodes in the past. In emergency department, he seems to be slightly off cognitively, but otherwise, neurologic examination was unremarkable, and he was not considered to be a candidate for thrombolytic treatment. He has history of cerebrovascular accident. Apparently, he had a left MCA stroke with left interval carotid artery total occlusion. While he was in the hospital, he deteriorated neurologically, and mechanical thrombectomy of left into the carotid artery and left M1 with rapid vascularization. Then, the patient received carotid artery stenting. Since then, he has not had any new neurological symptoms. He has recovered well from the stroke in 2020. He has been compliant on treatment. He has been on daily aspirin and low-dose Plavix as well as statin. He still smokes cigarettes. He denies years old alcohol or any other recreational drugs. He reports that occasionally, he gets word finding difficulty which has been persistent since having stroke a year ago. CT angiography of head and neck did not show hemodynamically significant stenosis. Left carotid stenting was patent. The patient was hospitalized for stroke work-up. Following brain MRI did not show acute intracranial pathology including acute cerebrovascular accident. Echocardiogram was unremarkable. Telemetry monitoring has been showing sinus rhythm. The patient has stayed stable in hospital, with improvement on mental status back to his baseline. There has been no witnessed seizure or seizure- like activities. I have reviewed the patient's chart including imaging studies and visualized them personally. I have discussed the case with the patient and answer his questions in detail. Home Medications Medication Instructions Recorded Confirmed Type aspirin 325 mg tablet 325 mg PO DAILY 03/07/22 03/07/22 History atorvastatin 40 mg tablet 40 mg PO DAILY 03/07/22 03/07/22 History clopidogrel 75 mg tablet 37.5 mg PO UD 03/07/22 03/07/22 History Patient History Medical History (Updated 03/07/22 @ 16:42 by Renny Machado MD) History of CVA (cerebrovascular accident) Hyperlipidemia Social History Smoking Status: Current every day smoker Do You Dip or Chew Tobacco: No; Tobacco Cessation Education Requested by Patient: No Hx Alcohol Use: No Hx Substance Use: No Preferred Language: Tunisian Communication Ability: Effective Fire Official Required: No Beliefs That Will Affect Care: None Current Living Situation: Spouse Other Information That Helps Us Care for You: No Feels Safe at Home: Yes Safety Concerns: Feels Safe At This Time Assistive Devices: None Review of Systems Review of Systems: All systems reviewed & are unremarkable except as noted in HPI & below Physical Exam Physical Exam: General Examination: Constitutional: Well developed person in no acute distress. HENT: Normal exam with inspection. CV: Hearth rhtyhm is regular. Neck: Supple, slight right carotid bruits. Lungs: Non-labored and comfortable breathing. Abdomen: Soft, non-tender, non-distended. Skin: No rash or ecchymosis. Extremities: No edema or cyanosis NEUROLOGICAL EXAMINATION: Mental Status: Alert and oriented to place, person and time. Cranial Nerves: II-XII are intact. No nystagmus. Funduscopy: Normal looking optic discs. Motor: 5/5 in all extremities without asymmetry. DTRs: 2+ in upper extremities and knees and 1+ in ankles symmetrically. No Babinsky. Tone: Normal without spasticity or rigidity. Sensory: Intact to all sensory modalities. Coordination: No dysmetria with FTN testing. Speech: Fluent with mild word finding difficulty. Comprehension is intact. Gait: Normal. No ataxia or abnormal walking pattern. Musculoskeletal: Normal muscle bulk, no atrophy. Results & Data ([facility]) Vital Signs (Past 12 Hours) Vital Signs Temp Pulse Pulse Resp BP BP Pulse Ox 03/07/22 15:24 36.6 C 80 105/45 L 94 03/07/22 14:00 70 16 127/73 94 03/07/22 11:16 76 18 155/81 H 94 03/07/22 08:33 37.0 C 62 18 137/74 95 03/07/22 05:00 60 18 121/58 L 97 O2 Del Method 03/07/22 15:24 Room Air 03/07/22 14:00 Room Air 03/07/22 11:16 Room Air 03/07/22 08:33 Room Air 03/07/22 05:00 Laboratory Results Laboratory Results - last 24 hr 03/07/22 03/07/22 03/07/22 00:21 00:21 00:21 WBC 8.70 RBC 4.46 L Hgb 14.8 Hct 44.3 MCV 99.3 MCH 33.2 MCHC 33.4 RDW Std Deviation 51.3 H RDW Coeff of Ted 13.9 Plt Count 236 MPV 12.8 H Immature Gran % (Auto) 0.2 Neut % (Auto) 60.0 Lymph % (Auto) 26.3 [place] % (Auto) 11.3 Eos % (Auto) 1.4 Baso % (Auto) 0.8 Neut # (Auto) 5.22 Lymph # (Auto) 2.29 [place] # (Auto) 0.98 H Eos # (Auto) 0.12 Baso # (Auto) 0.07 Immature Gran # (Auto) 0.02 PT 10.3 INR 1.0 APTT 24.2 PTT Ratio 0.9 Sodium 136 Potassium 3.9 Chloride 102 Carbon Dioxide 25 Anion Gap 9 BUN 33 H Creatinine 0.97 Est Cr Clr Drug Dosing 59.1 Est GFR ( Amer) 97.9 Est GFR (Non-Af Amer) 84.5 BUN/Creatinine Ratio 34.0 H Glucose 90 POC Glucose Estimat Average Glucose Hemoglobin A1c Calcium 9.7 Magnesium 2.1 Total Bilirubin 0.7 AST 22 ALT 20 Alkaline Phosphatase 55 Ammonia Troponin I High Sens 6.4 Total Protein 7.1 Albumin 4.5 Globulin 2.6 Albumin/Globulin Ratio 1.7 Triglycerides Cholesterol LDL Cholesterol, Calc VLDL Cholesterol, Calc HDL Cholesterol Cholesterol/HDL Ratio Urine Color Urine Appearance Urine pH Ur Specific [place] Urine Protein Urine Glucose (UA) Urine Ketones Urine Blood Urine Nitrite Urine Bilirubin Urine Urobilinogen Ur Leukocyte Esterase Urine Opiates Screen Ur Methadone, Qual Urine Barbiturates Ur Phencyclidine (PCP) U Amphetamin/Meth Scrn MDMA (Ecstasy) Screen U Benzodiazepines Scrn Ur Cocaine Metabolite U Marijuana (THC) Screen Ethyl Alcohol mg/dL SARS-CoV-2, RNA, NAAT 03/07/22 03/07/22 03/07/22 00:37 00:37 00:37 WBC RBC Hgb Hct MCV MCH MCHC RDW Std Deviation RDW Coeff of Ted Plt Count MPV Immature Gran % (Auto) Neut % (Auto) Lymph % (Auto) [place] % (Auto) Eos % (Auto) Baso % (Auto) Neut # (Auto) Lymph # (Auto) [place] # (Auto) Eos # (Auto) Baso # (Auto) Immature Gran # (Auto) PT INR APTT PTT Ratio Sodium Potassium Chloride Carbon Dioxide Anion Gap BUN Creatinine Est Cr Clr Drug Dosing Est GFR ( Amer) Est GFR (Non-Af Amer) BUN/Creatinine Ratio Glucose POC Glucose Estimat Average Glucose Hemoglobin A1c Calcium Magnesium Total Bilirubin AST ALT Alkaline Phosphatase Ammonia Troponin I High Sens Total Protein Albumin Globulin Albumin/Globulin Ratio Triglycerides Cholesterol LDL Cholesterol, Calc VLDL Cholesterol, Calc HDL Cholesterol Cholesterol/HDL Ratio Urine Color Yellow Urine Appearance Clear Urine pH 5.5 Ur Specific [place] 1.018 Urine Protein Negative Urine Glucose (UA) Negative Urine Ketones Negative Urine Blood Negative Urine Nitrite Negative Urine Bilirubin Negative Urine Urobilinogen Negative Ur Leukocyte Esterase Negative Urine Opiates Screen Neg Ur Methadone, Qual Neg Urine Barbiturates Neg Ur Phencyclidine (PCP) Neg U Amphetamin/Meth Scrn Neg MDMA (Ecstasy) Screen Neg U Benzodiazepines Scrn Neg Ur Cocaine Metabolite Neg U Marijuana (THC) Screen Neg Ethyl Alcohol mg/dL < 10.0 SARS-CoV-2, RNA, NAAT 03/07/22 03/07/22 03/07/22 00:45 00:46 02:43 WBC RBC Hgb Hct MCV MCH MCHC RDW Std Deviation RDW Coeff of Ted Plt Count MPV Immature Gran % (Auto) Neut % (Auto) Lymph % (Auto) [place] % (Auto) Eos % (Auto) Baso % (Auto) Neut # (Auto) Lymph # (Auto) [place] # (Auto) Eos # (Auto) Baso # (Auto) Immature Gran # (Auto) PT INR APTT PTT Ratio Sodium Potassium Chloride Carbon Dioxide Anion Gap BUN Creatinine Est Cr Clr Drug Dosing Est GFR ( Amer) Est GFR (Non-Af Amer) BUN/Creatinine Ratio Glucose POC Glucose 92 Estimat Average Glucose Hemoglobin A1c Calcium Magnesium Total Bilirubin AST ALT Alkaline Phosphatase Ammonia 19.0 Troponin I High Sens Total Protein Albumin Globulin Albumin/Globulin Ratio Triglycerides Cholesterol LDL Cholesterol, Calc VLDL Cholesterol, Calc HDL Cholesterol Cholesterol/HDL Ratio Urine Color Urine Appearance Urine pH Ur Specific [place] Urine Protein Urine Glucose (UA) Urine Ketones Urine Blood Urine Nitrite Urine Bilirubin Urine Urobilinogen Ur Leukocyte Esterase Urine Opiates Screen Ur Methadone, Qual Urine Barbiturates Ur Phencyclidine (PCP) U Amphetamin/Meth Scrn MDMA (Ecstasy) Screen U Benzodiazepines Scrn Ur Cocaine Metabolite U Marijuana (THC) Screen Ethyl Alcohol mg/dL SARS-CoV-2, RNA, NAAT NEGATIVE 03/07/22 03/07/22 03/07/22 04:55 04:55 04:55 WBC 7.61 RBC 4.30 L Hgb 14.1 Hct 41.4 MCV 96.3 MCH 32.8 MCHC 34.1 RDW Std Deviation 50.3 H RDW Coeff of Ted 14.1 Plt Count 213 MPV 13.0 H Immature Gran % (Auto) 0.3 Neut % (Auto) 57.0 Lymph % (Auto) 30.7 [place] % (Auto) 9.9 Eos % (Auto) 1.3 Baso % (Auto) 0.8 Neut # (Auto) 4.34 Lymph # (Auto) 2.34 [place] # (Auto) 0.75 Eos # (Auto) 0.10 Baso # (Auto) 0.06 Immature Gran # (Auto) 0.02 PT INR APTT PTT Ratio Sodium 136 Potassium 4.2 Chloride 106 Carbon Dioxide 24 Anion Gap 6 BUN 27 H Creatinine 0.78 Est Cr Clr Drug Dosing 73.5 Est GFR ( Amer) 113.7 Est GFR (Non-Af Amer) 98.1 BUN/Creatinine Ratio 34.6 H Glucose 89 POC Glucose Estimat Average Glucose 123 Hemoglobin A1c 5.9 H Calcium 8.9 Magnesium Total Bilirubin AST ALT Alkaline Phosphatase Ammonia Troponin I High Sens Total Protein Albumin Globulin Albumin/Globulin Ratio Triglycerides 71 Cholesterol 117 LDL Cholesterol, Calc 67 VLDL Cholesterol, Calc 14 HDL Cholesterol 36 Cholesterol/HDL Ratio 3.3 Urine Color Urine Appearance Urine pH Ur Specific [place] Urine Protein Urine Glucose (UA) Urine Ketones Urine Blood Urine Nitrite Urine Bilirubin Urine Urobilinogen Ur Leukocyte Esterase Urine Opiates Screen Ur Methadone, Qual Urine Barbiturates Ur Phencyclidine (PCP) U Amphetamin/Meth Scrn MDMA (Ecstasy) Screen U Benzodiazepines Scrn Ur Cocaine Metabolite U Marijuana (THC) Screen Ethyl Alcohol mg/dL SARS-CoV-2, RNA, NAAT Diagnostic Findings Head CT 03/07/22 00:[address] OF THE BRAIN; CT ANGIOGRAM OF THE BRAIN; CT ANGIOGRAM OF THE NECK CLINICAL HISTORY: Strokelike symptoms. COMPARISON STUDY: No priors. TECHNIQUE: Unenhanced axial CT scan of the brain is performed. Subsequently, following the IV administration of 113 of Optiray 300, CT angiogram of the head and neck was performed from the aortic arch to the vertex. Images are reviewed in the axial, sagittal, and coronal planes. 3-D MIPS images are created and assessed. IV contrast was administered without complication. All measurements were calculated based on NASCET criteria. A dose lowering technique was utilized adhering to the principles of ALARA. The examinations are significantly degraded by motion artifact. CT DOSE: 1169.46 mGy.cm FINDINGS: Brain parenchyma: Foci of left posterior parietal and left occipital encephalomalacia are consistent with remote infarcts. There is age-related involutional change noting mild subcortical and periventricular microangiopathic disease. A chronic lacunar infarct is noted in the left fajardo radiata. There is no hemorrhage, mass effect, or evidence of acute territorial ischemia by CT criteria. There is no evidence of enhancing mass lesion on the angiogram phase images. The ventricles, sulci, and cisterns are normal in configuration. Ledesma- white matter differentiation is preserved. No extra-axial fluid collection is seen. Thoracic aorta: There is atherosclerotic calcification of the thoracic aorta. Visualized portions of the thoracic aorta are normal in caliber. The aortic arch demonstrates standard 3-vessel anatomy. Right carotid arterial system: Atherosclerotic plaque causes less than 50% stenosis of the proximal right common carotid artery is seen on image #82. The remainder of the right common carotid artery is widely patent atherosclerotic plaque causes approximately 50% stenosis of the proximal right internal carotid artery is seen on image #249. This is difficult to assess due to significant motion artifact. The remainder of the internal carotid artery is widely patent, as is the external carotid artery. Left carotid arterial system: The left common carotid artery is widely patent, as are the left internal and external carotid arteries. A stent is noted in the left ICA. Vertebral arteries: There is high-grade stenosis at the origin of the left vertebral artery. The vertebral arteries are otherwise widely patent in the neck bilaterally. The right vertebral artery is dominant and the left vertebral artery is diminutive. Subclavian arteries: Widely patent bilaterally. Atherosclerotic plaque is seen in the left subclavian artery below the thoracic outlet. Intracranial vasculature: There is atherosclerotic calcification of the cavernous carotid and vertebral arteries. The jamul of [place] is developmentally complete. The internal carotid arteries are patent at the skull base, as are the anterior and middle cerebral arteries bilaterally. There is at least mild stenosis the intracranial internal carotid arteries bilaterally. 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 There is thready flow distal to this. The intracranial left vertebral artery is diminutive. The right vertebral artery is dominant and widely patent, as is the basilar artery. The posterior cerebral arteries are patent. There is no aneurysm seen throughout the intracranial circulation. Jugular veins: Patent bilaterally. Dural sinuses: Patent. Lung apices: Emphysematous change is noted. Scarring/fibrosis is seen posteriorly left upper lobe and there is apical pleural-parenchymal change. An indeterminant 8 mm linear density at the right apex is seen on image #53. Soft tissues: The visualized pharyngeal soft tissues are normal in appearance noting angiographic phase technique. The oropharyngeal airway appears widely patent. The salivary and thyroid glands are normal in appearance. No cervical lymphadenopathy is seen. Skeletal structures: The skeletal structures are osteopenic. The calvarium appears intact. The cervical spine is maintained noting multilevel spondylosis. No lytic or blastic lesion is seen. Orbits: The bony orbits are intact. Orbital contents are normal as visualized. Sinuses and mastoids: The paranasal sinuses are clear. The mastoid air cells are well pneumatized. IMPRESSION: 1. Chronic infarcts as above with no hemorrhage, mass effect, or evidence of acute territorial ischemia by CT criteria. 2. The CT angiogram of the neck is significantly degraded by motion artifact. 3. There is less than 50% stenosis of the proximal right common carotid artery. 4. There is approximately 50% stenosis at the origin of the right internal carotid artery. Evaluation at this level is severely degraded by motion artifact. 5. A left internal carotid artery stent is patent. 6. There is high-grade stenosis at the origin of the diminutive left vertebral artery. 7. There is near complete to complete focal thrombosis of the left vertebral a rtery at the skull base. 8. The dominant right vertebral artery is widely patent. 9. There is mild stenosis of both internal carotid arteries at the skull base. 10. No aneurysm is seen. 11. Emphysema. 12. An 8 mm linear nodular density is seen in the right upper lobe. A follow-up chest CT in 3 months time is recommended for reevaluation and full assessment of the thorax. ACT 112: Positive. There are findings on this exam that require communication between the performing entity and the patient following Patient Test Result Information Act ([place] Act 112) guidelines. Electronically signed by: Roc Sanchez M.D. 03/07/2022 7:20 AM Head CTA 03/07/22 00:[address] OF THE BRAIN; CT ANGIOGRAM OF THE BRAIN; CT ANGIOGRAM OF THE NECK CLINICAL HISTORY: Strokelike symptoms. COMPARISON STUDY: No priors. TECHNIQUE: Unenhanced axial CT scan of the brain is performed. Subsequently, following the IV administration of 113 of Optiray 300, CT angiogram of the head and neck was performed from the aortic arch to the vertex. Images are reviewed in the axial, sagittal, and coronal planes. 3-D MIPS images are created and assessed. IV contrast was administered without complication. All measurements were calculated based on NASCET criteria. A dose lowering technique was utilized adhering to the principles of ALARA. The examinations are significantly degraded by motion artifact. CT DOSE: 1169.46 mGy.cm FINDINGS: Brain parenchyma: Foci of left posterior parietal and left occipital encephalomalacia are consistent with remote infarcts. There is age-related involutional change noting mild subcortical and periventricular microangiopathic disease. A chronic lacunar infarct is noted in the left fajardo radiata. There is no hemorrhage, mass effect, or evidence of acute territorial ischemia by CT criteria. There is no evidence of enhancing mass lesion on the angiogram phase images. The ventricles, sulci, and cisterns are normal in configuration. Ledesma- white matter differentiation is preserved. No extra-axial fluid collection is seen. Thoracic aorta: There is atherosclerotic calcification of the thoracic aorta. Visualized portions of the thoracic aorta are normal in caliber. The aortic arch demonstrates standard 3-vessel anatomy. Right carotid arterial system: Atherosclerotic plaque causes less than 50% stenosis of the proximal right common carotid artery is seen on image #82. The remainder of the right common carotid artery is widely patent atherosclerotic plaque causes approximately 50% stenosis of the proximal right internal carotid artery is seen on image #249. This is difficult to assess due to significant motion artifact. The remainder of the internal carotid artery is widely patent, as is the external carotid artery. Left carotid arterial system: The left common carotid artery is widely patent, as are the left internal and external carotid arteries. A stent is noted in the left ICA. Vertebral arteries: There is high-grade stenosis at the origin of the left vertebral artery. The vertebral arteries are otherwise widely patent in the neck bilaterally. The right vertebral artery is dominant and the left vertebral artery is diminutive. Subclavian arteries: Widely patent bilaterally. Atherosclerotic plaque is seen in the left subclavian artery below the thoracic outlet. Intracranial vasculature: There is atherosclerotic calcification of the cavernous carotid and vertebral arteries. The jamul of [place] is developmentally complete. The internal carotid arteries are patent at the skull base, as are the anterior and middle cerebral arteries bilaterally. There is at least mild stenosis the intracranial internal carotid arteries bilaterally. 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 There is thready flow distal to this. The intracranial left vertebral artery is diminutive. The right vertebral artery is dominant and widely patent, as is the basilar artery. The posterior cerebral arteries are patent. There is no aneurysm seen throughout the intracranial circulation. Jugular veins: Patent bilaterally. Dural sinuses: Patent. Lung apices: Emphysematous change is noted. Scarring/fibrosis is seen posteriorly left upper lobe and there is apical pleural-parenchymal change. An indeterminant 8 mm linear density at the right apex is seen on image #53. Soft tissues: The visualized pharyngeal soft tissues are normal in appearance noting angiographic phase technique. The oropharyngeal airway appears widely patent. The salivary and thyroid glands are normal in appearance. No cervical lymphadenopathy is seen. Skeletal structures: The skeletal structures are osteopenic. The calvarium appears intact. The cervical spine is maintained noting multilevel spondylosis. No lytic or blastic lesion is seen. Orbits: The bony orbits are intact. Orbital contents are normal as visualized. Sinuses and mastoids: The paranasal sinuses are clear. The mastoid air cells are well pneumatized. IMPRESSION: 1. Chronic infarcts as above with no hemorrhage, mass effect, or evidence of acute territorial ischemia by CT criteria. 2. The CT angiogram of the neck is significantly degraded by motion artifact. 3. There is less than 50% stenosis of the proximal right common carotid artery. 4. There is approximately 50% stenosis at the origin of the right internal carotid artery. Evaluation at this level is severely degraded by motion artifact. 5. A left internal carotid artery stent is patent. 6. There is high-grade stenosis at the origin of the diminutive left vertebral artery. 7. 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 8. The dominant right vertebral artery is widely patent. 9. There is mild stenosis of both internal carotid arteries at the skull base. 10. No aneurysm is seen. 11. Emphysema. 12. An 8 mm linear nodular density is seen in the right upper lobe. A follow-up chest CT in 3 months time is recommended for reevaluation and full assessment of the thorax. ACT 112: Positive. There are findings on this exam that require communication between the performing entity and the patient following Patient Test Result Information Act ([place] Act 112) guidelines. Electronically signed by: Roc Sanchez M.D. 03/07/2022 7:20 AM Neck CTA 03/07/22 00:[address] OF THE BRAIN; CT ANGIOGRAM OF THE BRAIN; CT ANGIOGRAM OF THE NECK CLINICAL HISTORY: Strokelike symptoms. COMPARISON STUDY: No priors. TECHNIQUE: Unenhanced axial CT scan of the brain is performed. Subsequently, following the IV administration of 113 of Optiray 300, CT angiogram of the head and neck was performed from the aortic arch to the vertex. Images are reviewed in the axial, sagittal, and coronal planes. 3-D MIPS images are created and assessed. IV contrast was administered without complication. All measurements were calculated based on NASCET criteria. A dose lowering technique was utilized adhering to the principles of ALARA. The examinations are significantly degraded by motion artifact. CT DOSE: 1169.46 mGy.cm FINDINGS: Brain parenchyma: Foci of left posterior parietal and left occipital encephalomalacia are consistent with remote infarcts. There is age-related involutional change noting mild subcortical and periventricular microangiopathic disease. A chronic lacunar infarct is noted in the left fajardo radiata. There is no hemorrhage, mass effect, or evidence of acute territorial ischemia by CT criteria. There is no evidence of enhancing mass lesion on the angiogram phase images. The ventricles, sulci, and cisterns are normal in configuration. Ledesma- white matter differentiation is preserved. No extra-axial fluid collection is seen. Thoracic aorta: There is atherosclerotic calcification of the thoracic aorta. Visualized portions of the thoracic aorta are normal in caliber. The aortic arch demonstrates standard 3-vessel anatomy. Right carotid arterial system: Atherosclerotic plaque causes less than 50% stenosis of the proximal right common carotid artery is seen on image #82. The remainder of the right common carotid artery is widely patent atherosclerotic plaque causes approximately 50% stenosis of the proximal right internal carotid artery is seen on image #249. This is difficult to assess due to significant motion artifact. The remainder of the internal carotid artery is widely patent, as is the external carotid artery. Left carotid arterial system: The left common carotid artery is widely patent, as are the left internal and external carotid arteries. A stent is noted in the left ICA. Vertebral arteries: There is high-grade stenosis at the origin of the left vertebral artery. The vertebral arteries are otherwise widely patent in the neck bilaterally. The right vertebral artery is dominant and the left vertebral artery is diminutive. Subclavian arteries: Widely patent bilaterally. Atherosclerotic plaque is seen in the left subclavian artery below the thoracic outlet. Intracranial vasculature: There is atherosclerotic calcification of the cavernous carotid and vertebral arteries. The jamul of [place] is developmentally complete. The internal carotid arteries are patent at the skull base, as are the anterior and middle cerebral arteries bilaterally. There is at least mild stenosis the intracranial internal carotid arteries bilaterally. 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 There is thready flow distal to this. The intracranial left vertebral artery is diminutive. The right vertebral artery is dominant and widely patent, as is the basilar artery. The posterior cerebral arteries are patent. There is no aneurysm seen throughout the intracranial circulation. Jugular veins: Patent bilaterally. Dural sinuses: Patent. Lung apices: Emphysematous change is noted. Scarring/fibrosis is seen posteriorly left upper lobe and there is apical pleural-parenchymal change. An indeterminant 8 mm linear density at the right apex is seen on image #53. Soft tissues: The visualized pharyngeal soft tissues are normal in appearance noting angiographic phase technique. The oropharyngeal airway appears widely patent. The salivary and thyroid glands are normal in appearance. No cervical lymphadenopathy is seen. Skeletal structures: The skeletal structures are osteopenic. The calvarium appears intact. The cervical spine is maintained noting multilevel spondylosis. No lytic or blastic lesion is seen. Orbits: The bony orbits are intact. Orbital contents are normal as visualized. Sinuses and mastoids: The paranasal sinuses are clear. The mastoid air cells are well pneumatized. IMPRESSION: 1. Chronic infarcts as above with no hemorrhage, mass effect, or evidence of acute territorial ischemia by CT criteria. 2. The CT angiogram of the neck is significantly degraded by motion artifact. 3. There is less than 50% stenosis of the proximal right common carotid artery. 4. There is approximately 50% stenosis at the origin of the right internal carotid artery. Evaluation at this level is severely degraded by motion artifact. 5. A left internal carotid artery stent is patent. 6. There is high-grade stenosis at the origin of the diminutive left vertebral artery. 7. 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 8. The dominant right vertebral artery is widely patent. 9. There is mild stenosis of both internal carotid arteries at the skull base. 10. No aneurysm is seen. 11. Emphysema. 12. An 8 mm linear nodular density is seen in the right upper lobe. A follow-up chest CT in 3 months time is recommended for reevaluation and full assessment of the thorax. ACT 112: Positive. There are findings on this exam that require communication between the performing entity and the patient following Patient Test Result Information Act ([place] Act 112) guidelines. Electronically signed by: Roc Sanchez M.D. 03/07/2022 7:20 AM Brain MRI 03/07/22 04:39 MRI OF THE BRAIN COMBO CLINICAL HISTORY: Strokelike symptoms. Slurred speech. Left-sided weakness. COMPARISON STUDY: CT of the brain performed the same day 03/07/2022. TECHNIQUE: MRI of the brain was performed utilizing various T1 and T2-weighted sequences in the axial, sagittal, and coronal planes. Contrast-enhanced sequences were acquired following the administration of 5 cc of Gadavist. FINDINGS: Brain parenchyma: Foci of left posterior parietal and left occipital encephalomalacia are consistent with remote infarcts. Chronic lacunar infarcts are noted in the left fajardo radiata and the left cerebellar hemisphere. There is no hemorrhage or mass effect. There is no restricted diffusion typical for acute ischemia. No enhancing mass lesion is identified on the postcontrast images. There is age-related involutional change noting mild subcortical and pe riventricular microangiopathic disease. A tiny focus of mineralization is noted in the left thalamus. Ledemsa-white matter differentiation is preserved. No extra- axial fluid collection is seen. The cerebellar tonsils are normal in configuration. Ventricles, sulci, and cisterns: Prominent secondary to involutional change. Cavum septum pellucidum is incidentally noted. Pituitary and sella: Unremarkable. Intracranial vasculature: Normal flow voids are maintained at the skull base. Orbits: The bony orbits are grossly intact. Orbital contents are normal in appearance. Sinuses and mastoids: Clear. Calvarium: Unremarkable. Cervical cord: Partially visualized cervical spinal cord is normal in morphology and signal intensity. IMPRESSION: No acute intracranial abnormality. ACT 112: Negative or not required by law. Electronically signed by: Roc Sanchez M.D. 03/07/2022 8:40 AM (1) Altered mental status Altered mental status type: transient alteration of awareness Qualified Code(s): R40.4 - Transient alteration of awareness
--- NOTE | 2022-03-07 17:02 | Discharge Summary ---
Date of Service March 07, 2022 Admission HPI Per Admitting Provider This is a 61-year-old male with past medical history significant for CVA, hyperlipidemia, was brought in because of altered mental status. 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 He was sending cars through that were not supposed to be going through, seems slow to respond to questions that is the reason he was brought in here. The patient had a stroke last year. He was in [place], he was transferred from [facility] to [place] at that time. He has acute left MCA stroke and also left internal carotid artery occlusion. The patient presented with speech difficulties and right sided weakness, a stroke alert was called and was found to have a left ICA occlusion on CTA and Neurosurgery was consulted and transferred to [facility] for mechanical thrombectomy. Admitted to [facility] on 02/27/2021, was noted to have a total occlusion of left internal carotid artery with good collaterals. No intervention was done. Transferred to ICU for close observation and by next day morning on 02/28/2021 and 03/01/2021 patient remained stable, but on 03/02/2021 patient had severe aphasia and right hemiplegia, with redemonstration of LICA occlusion and concern for distal LICA M1 thromboembolism on CTA. The patient was emergently taken to OR and underwent angioplasty and stenting x2 of left ICA and mechanical thrombectomy of both left ICA and left M1 with revascularization. The patient started on aspirin and Plavix half tablet and to continue Lipitor and dysphagia diet. Currently, patient is taking Plavix half tablet q. 72 hours. The patient says his speech is improved since then. He is eating whatever he wants and swallowing okay. Thinks today his confusion could be from dehydration, but he is not drinking much water. Currently, resting comfortably, hemodynamically stable but sometimes he has difficulty speaking, but able to answer questions appropriately. Denies any headache, denies any dizziness, denies having blurred visions. No earache, no runny nose, no sore throat, no cough, no fever, no chills, no chest pain, no shortness of breath, no nausea, no abdominal pain. Normal bowel and bladder movements. Denies any blood in stool or black stools. Denies any hematuria. No swelling in the legs. Currently smoking half pack of cigarettes daily. Admission Exam Per Admitting Provider GENERAL: The patient is thin and frail, not in acute distress. VITAL SIGNS: Temperature 36.7, pulse 66, respiratory rate 18, blood pressure 160/91, oxygen 99% on room air. HEENT: Pupils equal, round and reactive to light. Extraocular muscles intact. No facial droop. Oral mucosa moist. NECK: No JVD. No masses. CARDIOVASCULAR: S1 and S2 heard. Regular rate and rhythm. No murmur, no gallop. RESPIRATORY SYSTEM: Normal AP diameter. No accessory muscle use. No wheezing, no crackles. ABDOMEN: Soft, bowel sounds present, nontender, no distention. CENTRAL NERVOUS SYSTEM: Alert, awake, and oriented x3. Extraocular muscles intact. No facial droop. Speech is was clear. Insight is okay. Obeys commands. Power 5/5 in all extremities. No pronator drift. Coordination of movements normal. Sensation is intact. Position sense intact. EXTREMITIES: No edema, no erythema. Principal Diagnosis Altered mental status, likely acute metabolic enceophalopathy Discharge Exam General: Lying comfortably in bed, not in distress, on room air HEENT: EOMI, JASON, MMM Chest: Clear breath sounds bilaterally, no wheezes or crackles CVS: Regular rate and rhythm, normal heart sounds, no murmur Abdomen: Soft, non tender, not distended, normal bowel sounds Neuro: Awake, alert, oriented, conversing well, non focal. Neuro exam was grossly intact. Strength 5/5, sensation intact, finger nose test normal, CN grossly intact. No dysarthria. Extremities: No cyanosis, clubbing or edema Discharge Data Consultations 03/07/22 02:35 ED Decision to Admit Stat 03/07/22 08:00 Consult Neurology Routine Ordered Studies 03/07/22 00:31 CT angio head w con Stat CT angio neck with con Stat CT head/brain wo con Stat 03/07/22 04:39 MR brain wo/w con Urgent Laboratory Results WBC 7.61 K/ul (4.8-10.8) 03/07/22 04:55 RBC 4.30 M/uL (4.63-6.08) L 03/07/22 04:55 Hgb 14.1 g/dl (14.0-18.0) 03/07/22 04:55 Hct 41.4 % (40.1-51.0) 03/07/22 04:55 MCV 96.3 fL (80.0-100.0) 03/07/22 04:55 MCH 32.8 pg (25.0-34.0) 03/07/22 04:55 MCHC 34.1 g/dL (32.0-36.0) 03/07/22 04:55 RDW Std Deviation 50.3 fL (36.4-46.3) H 03/07/22 04:55 RDW Coeff of Ted 14.1 % (11.5-14.5) 03/07/22 04:55 Plt Count 213 K/uL (130-400) 03/07/22 04:55 MPV 13.0 fL (9.4-12.4) H 03/07/22 04:55 Immature Gran % (Auto) 0.3 % 03/07/22 04:55 Neut % (Auto) 57.0 % 03/07/22 04:55 Lymph % (Auto) 30.7 % 03/07/22 04:55 [place] % (Auto) 9.9 % 03/07/22 04:55 Eos % (Auto) 1.3 % 03/07/22 04:55 Baso % (Auto) 0.8 % 03/07/22 04:55 Neut # (Auto) 4.34 K/uL (1.4-6.5) 03/07/22 04:55 Lymph # (Auto) 2.34 K/uL (1.2-3.4) 03/07/22 04:55 [place] # (Auto) 0.75 K/uL (0.24-0.82) 03/07/22 04:55 Eos # (Auto) 0.10 K/uL (0-0.50) 03/07/22 04:55 Baso # (Auto) 0.06 K/uL (0-0.2) 03/07/22 04:55 Immature Gran # (Auto) 0.02 K/uL (0.00-0.02) 03/07/22 04:55 PT 10.3 Seconds (9.0-12.0) 03/07/22 00:21 INR 1.0 (0.9-1.1) 03/07/22 00:21 APTT 24.2 Seconds (21.0-31.0) 03/07/22 00:21 PTT Ratio 0.9 03/07/22 00:21 Sodium 136 mmol/L (136-145) 03/07/22 04:55 Potassium 4.2 mmol/L (3.5-5.1) 03/07/22 04:55 Chloride 106 mmol/L (98-107) 03/07/22 04:55 Carbon Dioxide 24 mmol/L (21-32) 03/07/22 04:55 Anion Gap 6 (3-11) 03/07/22 04:55 BUN 27 mg/dl (6-23) H 03/07/22 04:55 Creatinine 0.78 mg/dl (0.6-1.4) 03/07/22 04:55 Est Cr Clr Drug Dosing 73.5 ml/min 03/07/22 04:55 Est GFR ( Amer) 113.7 ml/min 03/07/22 04:55 Est GFR (Non-Af Amer) 98.1 ml/min 03/07/22 04:55 BUN/Creatinine Ratio 34.6 (10-20) H 03/07/22 04:55 Glucose 89 mg/dl (70-99(Fasting)) 03/07/22 04:55 POC Glucose 92 mg/dl (70-99) 03/07/22 00:46 Estimat Average Glucose 123 mg/dl 03/07/22 04:55 Hemoglobin A1c 5.9 % (4.5-5.6) H 03/07/22 04:55 Calcium 8.9 mg/dl (8.5-10.1) 03/07/22 04:55 Magnesium 2.1 mg/dl (1.7-2.4) 03/07/22 00:21 Total Bilirubin 0.7 mg/dl (0.2-1.0) 03/07/22 00:21 AST 22 U/L (13-39) 03/07/22 00:21 ALT 20 U/L (7-52) 03/07/22 00:21 Alkaline Phosphatase 55 U/L (34-104) 03/07/22 00:21 Ammonia 19.0 umol/L (18-72) 03/07/22 00:45 Troponin I High Sens 6.4 pg/ml (0-20) 03/07/22 00:21 Total Protein 7.1 gm/dl (6.0-8.3) 03/07/22 00:21 Albumin 4.5 gm/dl (3.4-5.0) 03/07/22 00:21 Globulin 2.6 gm/dl (2.5-4.0) 03/07/22 00:21 Albumin/Globulin Ratio 1.7 (0.9-2) 03/07/22 00:21 Triglycerides 71 mg/dl (0-150) 03/07/22 04:55 Cholesterol 117 mg/dl (0-200) 03/07/22 04:55 LDL Cholesterol, Calc 67 mg/dl 03/07/22 04:55 VLDL Cholesterol, Calc 14 mg/dl (0-30) 03/07/22 04:55 HDL Cholesterol 36 mg/dl 03/07/22 04:55 Cholesterol/HDL Ratio 3.3 (0-5) 03/07/22 04:55 Urine Color Yellow 03/07/22 00:37 Urine Appearance Clear (Clear) 03/07/22 00:37 Urine pH 5.5 (4.5-7.5) 03/07/22 00:37 Ur Specific [place] 1.018 (1.000-1.030) 03/07/22 00:37 Urine Protein Negative (Negative) 03/07/22 00:37 Urine Glucose (UA) Negative (Negative) 03/07/22 00:37 Urine Ketones Negative (Negative) 03/07/22 00:37 Urine Blood Negative (Negative) 03/07/22 00:37 Urine Nitrite Negative (Negative) 03/07/22 00:37 Urine Bilirubin Negative (Negative) 03/07/22 00:37 Urine Urobilinogen Negative (Negative) 03/07/22 00:37 Ur Leukocyte Esterase Negative (Negative) 03/07/22 00:37 Urine Opiates Screen Neg (Neg) 03/07/22 00:37 Ur Methadone, Qual Neg (Neg) 03/07/22 00:37 Urine Barbiturates Neg (Neg) 03/07/22 00:37 Ur Phencyclidine (PCP) Neg (Neg) 03/07/22 00:37 U Amphetamin/Meth Scrn Neg (Neg) 03/07/22 00:37 MDMA (Ecstasy) Screen Neg (Neg) 03/07/22 00:37 U Benzodiazepines Scrn Neg (Neg) 03/07/22 00:37 Ur Cocaine Metabolite Neg (Neg) 03/07/22 00:37 U Marijuana (THC) Screen Neg (Neg) 03/07/22 00:37 Ethyl Alcohol mg/dL < 10.0 mg/dl (<10.0) 03/07/22 00:37 SARS-CoV-2, RNA, NAAT NEGATIVE (NEGATIVE) 03/07/22 02:[address] 03/07/22 00:[address] OF THE BRAIN; CT ANGIOGRAM OF THE BRAIN; CT ANGIOGRAM OF THE NECK CLINICAL HISTORY: Strokelike symptoms. COMPARISON STUDY: No priors. TECHNIQUE: Unenhanced axial CT scan of the brain is performed. Subsequently, following the IV administration of 113 of Optiray 300, CT angiogram of the head and neck was performed from the aortic arch to the vertex. Images are reviewed in the axial, sagittal, and coronal planes. 3-D MIPS images are created and assessed. IV contrast was administered without complication. All measurements were calculated based on NASCET criteria. A dose lowering technique was utilized adhering to the principles of ALARA. The examinations are significantly degraded by motion artifact. CT DOSE: 1169.46 mGy.cm FINDINGS: Brain parenchyma: Foci of left posterior parietal and left occipital encephalomalacia are consistent with remote infarcts. There is age-related involutional change noting mild subcortical and periventricular microangiopathic disease. A chronic lacunar infarct is noted in the left fajardo radiata. There is no hemorrhage, mass effect, or evidence of acute territorial ischemia by CT criteria. There is no evidence of enhancing mass lesion on the angiogram phase images. The ventricles, sulci, and cisterns are normal in configuration. Ledesma- white matter differentiation is preserved. No extra-axial fluid collection is seen. Thoracic aorta: There is atherosclerotic calcification of the thoracic aorta. Visualized portions of the thoracic aorta are normal in caliber. The aortic arch demonstrates standard 3-vessel anatomy. Right carotid arterial system: Atherosclerotic plaque causes less than 50% stenosis of the proximal right common carotid artery is seen on image #82. The remainder of the right common carotid artery is widely patent atherosclerotic plaque causes approximately 50% stenosis of the proximal right internal carotid artery is seen on image #249. This is difficult to assess due to significant motion artifact. The remainder of the internal carotid artery is widely patent, as is the external carotid artery. Left carotid arterial system: The left common carotid artery is widely patent, as are the left internal and external carotid arteries. A stent is noted in the left ICA. Vertebral arteries: There is high-grade stenosis at the origin of the left vertebral artery. The vertebral arteries are otherwise widely patent in the neck bilaterally. The right vertebral artery is dominant and the left vertebral artery is diminutive. Subclavian arteries: Widely patent bilaterally. Atherosclerotic plaque is seen in the left subclavian artery below the thoracic outlet. Intracranial vasculature: There is atherosclerotic calcification of the cavernous carotid and vertebral arteries. The [place] is developmen tally complete. The internal carotid arteries are patent at the skull base, as are the anterior and middle cerebral arteries bilaterally. There is at least mild stenosis the intracranial internal carotid arteries bilaterally. 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 There is thready flow distal to this. The intracranial left vertebral artery is diminutive. The right vertebral artery is dominant and widely patent, as is the basilar artery. The posterior cerebral arteries are patent. There is no aneurysm seen throughout the intracranial circulation. Jugular veins: Patent bilaterally. Dural sinuses: Patent. Lung apices: Emphysematous change is noted. Scarring/fibrosis is seen posteriorly left upper lobe and there is apical pleural-parenchymal change. An indeterminant 8 mm linear density at the right apex is seen on image #53. Soft tissues: The visualized pharyngeal soft tissues are normal in appearance noting angiographic phase technique. The oropharyngeal airway appears widely patent. The salivary and thyroid glands are normal in appearance. No cervical lymphadenopathy is seen. Skeletal structures: The skeletal structures are osteopenic. The calvarium appears intact. The cervical spine is maintained noting multilevel spondylosis. No lytic or blastic lesion is seen. Orbits: The bony orbits are intact. Orbital contents are normal as visualized. Sinuses and mastoids: The paranasal sinuses are clear. The mastoid air cells are well pneumatized. IMPRESSION: 1. Chronic infarcts as above with no hemorrhage, mass effect, or evidence of acute territorial ischemia by CT criteria. 2. The CT angiogram of the neck is significantly degraded by motion artifact. 3. There is less than 50% stenosis of the proximal right common carotid artery. 4. There is approximately 50% stenosis at the origin of the right internal carotid artery. Evaluation at this level is severely degraded by motion artifact. 5. A left internal carotid artery stent is patent. 6. There is high-grade stenosis at the origin of the diminutive left vertebral a rtery. 7. 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 8. The dominant right vertebral artery is widely patent. 9. There is mild stenosis of both internal carotid arteries at the skull base. 10. No aneurysm is seen. 11. Emphysema. 12. An 8 mm linear nodular density is seen in the right upper lobe. A follow-up chest CT in 3 months time is recommended for reevaluation and full assessment of the thorax. ACT 112: Positive. There are findings on this exam that require communication between the performing entity and the patient following Patient Test Result Information Act ([place] Act 112) guidelines. Electronically signed by: Roc Sanchez M.D. 03/07/2022 7:20 AM Head CTA 03/07/22 00:[address] OF THE BRAIN; CT ANGIOGRAM OF THE BRAIN; CT ANGIOGRAM OF THE NECK CLINICAL HISTORY: Strokelike symptoms. COMPARISON STUDY: No priors. TECHNIQUE: Unenhanced axial CT scan of the brain is performed. Subsequently, following the IV administration of 113 of Optiray 300, CT angiogram of the head and neck was performed from the aortic arch to the vertex. Images are reviewed in the axial, sagittal, and coronal planes. 3-D MIPS images are created and assessed. IV contrast was administered without complication. All measurements were calculated based on NASCET criteria. A dose lowering technique was utilized adhering to the principles of ALARA. The examinations are significantly degraded by motion artifact. CT DOSE: 1169.46 mGy.cm FINDINGS: Brain parenchyma: Foci of left posterior parietal and left occipital encephalomalacia are consistent with remote infarcts. There is age-related involutional change noting mild subcortical and periventricular microangiopathic disease. A chronic lacunar infarct is noted in the left fajardo radiata. There is no hemorrhage, mass effect, or evidence of acute territorial ischemia by CT criteria. There is no evidence of enhancing mass lesion on the angiogram phase images. The ventricles, sulci, and cisterns are normal in configuration. Ledesma- white matter differentiation is preserved. No extra-axial fluid collection is seen. Thoracic aorta: There is atherosclerotic calcification of the thoracic aorta. Visualized portions of the thoracic aorta are normal in caliber. The aortic arch demonstrates standard 3-vessel anatomy. Right carotid arterial system: Atherosclerotic plaque causes less than 50% stenosis of the proximal right common carotid artery is seen on image #82. The remainder of the right common carotid artery is widely patent atherosclerotic plaque causes approximately 50% stenosis of the proximal right internal carotid artery is seen on image #249. This is difficult to assess due to significant motion artifact. The remainder of the internal carotid artery is widely patent, as is the external carotid artery. Left carotid arterial system: The left common carotid artery is widely patent, as are the left internal and external carotid arteries. A stent is noted in the left ICA. Vertebral arteries: There is high-grade stenosis at the origin of the left vertebral artery. The vertebral arteries are otherwise widely patent in the neck bilaterally. The right vertebral artery is dominant and the left vertebral artery is diminutive. Subclavian arteries: Widely patent bilaterally. Atherosclerotic plaque is seen in the left subclavian artery below the thoracic outlet. Intracranial vasculature: There is atherosclerotic calcification of the cavernous carotid and vertebral arteries. The [place] is d evelopmentally complete. The internal carotid arteries are patent at the skull base, as are the anterior and middle cerebral arteries bilaterally. There is at least mild stenosis the intracranial internal carotid arteries bilaterally. 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 There is thready flow distal to this. The intracranial left vertebral artery is diminutive. The right vertebral artery is dominant and widely patent, as is the basilar artery. The posterior cerebral arteries are patent. There is no aneurysm seen throughout the intracranial circulation. Jugular veins: Patent bilaterally. Dural sinuses: Patent. Lung apices: Emphysematous change is noted. Scarring/fibrosis is seen posteriorly left upper lobe and there is apical pleural-parenchymal change. An indeterminant 8 mm linear density at the right apex is seen on image #53. Soft tissues: The visualized pharyngeal soft tissues are normal in appearance noting angiographic phase technique. The oropharyngeal airway appears widely patent. The salivary and thyroid glands are normal in appearance. No cervical lymphadenopathy is seen. Skeletal structures: The skeletal structures are osteopenic. The calvarium appears intact. The cervical spine is maintained noting multilevel spondylosis. No lytic or blastic lesion is seen. Orbits: The bony orbits are intact. Orbital contents are normal as visualized. Sinuses and mastoids: The paranasal sinuses are clear. The mastoid air cells are well pneumatized. IMPRESSION: 1. Chronic infarcts as above with no hemorrhage, mass effect, or evidence of acute territorial ischemia by CT criteria. 2. The CT angiogram of the neck is significantly degraded by motion artifact. 3. There is less than 50% stenosis of the proximal right common carotid artery. 4. There is approximately 50% stenosis at the origin of the right internal carotid artery. Evaluation at this level is severely degraded by motion artifact. 5. A left internal carotid artery stent is patent. 6. There is high-grade stenosis at the origin of the diminutive left vertebral artery. 7. 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 8. The dominant right vertebral artery is widely patent. 9. There is mild stenosis of both internal carotid arteries at the skull base. 10. No aneurysm is seen. 11. Emphysema. 12. An 8 mm linear nodular density is seen in the right upper lobe. A follow-up chest CT in 3 months time is recommended for reevaluation and full assessment of the thorax. ACT 112: Positive. There are findings on this exam that require communication between the performing entity and the patient following Patient Test Result Information Act ([place] Act 112) guidelines. Electronically signed by: Roc Sanchez M.D. 03/07/2022 7:20 AM Neck CTA 03/07/22 00:[address] OF THE BRAIN; CT ANGIOGRAM OF THE BRAIN; CT ANGIOGRAM OF THE NECK CLINICAL HISTORY: Strokelike symptoms. COMPARISON STUDY: No priors. TECHNIQUE: Unenhanced axial CT scan of the brain is performed. Subsequently, following the IV administration of 113 of Optiray 300, CT angiogram of the head and neck was performed from the aortic arch to the vertex. Images are reviewed in the axial, sagittal, and coronal planes. 3-D MIPS images are created and assessed. IV contrast was administered without complication. All measurements were calculated based on NASCET criteria. A dose lowering technique was utilized adhering to the principles of ALARA. The examinations are significantly degraded by motion artifact. CT DOSE: 1169.46 mGy.cm FINDINGS: Brain parenchyma: Foci of left posterior parietal and left occipital encephalomalacia are consistent with remote infarcts. There is age-related involutional change noting mild subcortical and periventricular microangiopathic disease. A chronic lacunar infarct is noted in the left fajardo radiata. There is no hemorrhage, mass effect, or evidence of acute territorial ischemia by CT criteria. There is no evidence of enhancing mass lesion on the angiogram phase images. The ventricles, sulci, and cisterns are normal in configuration. Ledesma- white matter differentiation is preserved. No extra-axial fluid collection is seen. Thoracic aorta: There is atherosclerotic calcification of the thoracic aorta. Visualized portions of the thoracic aorta are normal in caliber. The aortic arch demonstrates standard 3-vessel anatomy. Right carotid arterial system: Atherosclerotic plaque causes less than 50% stenosis of the proximal right common carotid artery is seen on image #82. The remainder of the right common carotid artery is widely patent atherosclerotic plaque causes approximately 50% stenosis of the proximal right internal carotid artery is seen on image #249. This is difficult to assess due to significant motion artifact. The remainder of the internal carotid artery is widely patent, as is the external carotid artery. Left carotid arterial system: The left common carotid artery is widely patent, as are the left internal and external carotid arteries. A stent is noted in the left ICA. Vertebral arteries: There is high-grade stenosis at the origin of the left vertebral artery. The vertebral arteries are otherwise widely patent in the neck bilaterally. The right vertebral artery is dominant and the left vertebral artery is diminutive. Subclavian arteries: Widely patent bilaterally. Atherosclerotic plaque is seen in the left subclavian artery below the thoracic outlet. Intracranial vasculature: There is atherosclerotic calcification of the cavernous carotid and vertebral arteries. The [place] is developmentally complete. The internal carotid arteries are patent at the skull base, as are the anterior and middle cerebral arteries bilaterally. There is at least mild stenosis the intracranial internal carotid arteries bilaterally. There is high-grade stenosis with near complete to complete occlusion of the intracranial left vertebral artery at the skull base seen on image #305 with on ly trace flow. There is thready flow distal to this. The intracranial left vertebral artery is diminutive. The right vertebral artery is dominant and widely patent, as is the basilar artery. The posterior cerebral arteries are patent. There is no aneurysm seen throughout the intracranial circulation. Jugular veins: Patent bilaterally. Dural sinuses: Patent. Lung apices: Emphysematous change is noted. Scarring/fibrosis is seen posteriorly left upper lobe and there is apical pleural-parenchymal change. An indeterminant 8 mm linear density at the right apex is seen on image #53. Soft tissues: The visualized pharyngeal soft tissues are normal in appearance noting angiographic phase technique. The oropharyngeal airway appears widely patent. The salivary and thyroid glands are normal in appearance. No cervical lymphadenopathy is seen. Skeletal structures: The skeletal structures are osteopenic. The calvarium appears intact. The cervical spine is maintained noting multilevel spondylosis. No lytic or blastic lesion is seen. Orbits: The bony orbits are intact. Orbital contents are normal as visualized. Sinuses and mastoids: The paranasal sinuses are clear. The mastoid air cells are well pneumatized. IMPRESSION: 1. Chronic infarcts as above with no hemorrhage, mass effect, or evidence of acute territorial ischemia by CT criteria. 2. The CT angiogram of the neck is significantly degraded by motion artifact. 3. There is less than 50% stenosis of the proximal right common carotid artery. 4. There is approximately 50% stenosis at the origin of the right internal carotid artery. Evaluation at this level is severely degraded by motion artifact. 5. A left internal carotid artery stent is patent. 6. There is high-grade stenosis at the origin of the diminutive left vertebral artery. 7. 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 8. The dominant right vertebral artery is widely patent. 9. There is mild stenosis of both internal carotid arteries at the skull base. 10. No aneurysm is seen. 11. Emphysema. 12. An 8 mm linear nodular density is seen in the right upper lobe. A follow-up chest CT in 3 months time is recommended for reevaluation and full assessment of the thorax. ACT 112: Positive. There are findings on this exam that require communication between the performing entity and the patient following Patient Test Result Information Act ([place] Act 112) guidelines. Electronically signed by: Roc Sanchez M.D. 03/07/2022 7:20 AM Brain MRI 03/07/22 04:39 MRI OF THE BRAIN COMBO CLINICAL HISTORY: Strokelike symptoms. Slurred speech. Left-sided weakness. COMPARISON STUDY: CT of the brain performed the same day 03/07/2022. TECHNIQUE: MRI of the brain was performed utilizing various T1 and T2-weighted sequences in the axial, sagittal, and coronal planes. Contrast-enhanced sequences were acquired following the administration of 5 cc of Gadavist. FINDINGS: Brain parenchyma: Foci of left posterior parietal and left occipital encephalomalacia are consistent with remote infarcts. Chronic lacunar infarcts are noted in the left fajarod radiata and the left cerebellar hemisphere. There is no hemorrhage or mass effect. There is no restricted diffusion typical for acute ischemia. No enhancing mass lesion is identified on the postcontrast images. There is age-related involutional change noting mild subcortical and periventricular microangiopathic disease. A tiny focus of mineralization is noted in the left thalamus. Ledesma-white matter differentiation is preserved. No extra-axial fluid collection is seen. The cerebellar tonsils are normal in configuration. Ventricles, sulci, and cisterns: Prominent secondary to involutional change. Cavum septum pellucidum is incidentally noted. Pituitary and sella: Unremarkable. Intracranial vasculature: Normal flow voids are maintained at the skull base. Orbits: The bony orbits are grossly intact. Orbital contents are normal in appearance. Sinuses and mastoids: Clear. Calvarium: Unremarkable. Cervical cord: Partially visualized cervical spinal cord is normal in morphology and signal intensity. IMPRESSION: No acute intracranial abnormality. ACT 112: Negative or not required by law. Electronically signed by: Roc Sanchez M.D. 03/07/2022 8:40 AM Hospital Course (1) Altered mental status: Plan This is a 61 year old venancio with complicated past medical history of stroke as detailed in HPI presented to the ED with confusion, likely acute metabolic encephalopathy which rapidly cleared and is now back to his baseline with IVF and conservative management. His stroke work up has been negative for acute stroke. His echo and tele unremarkable. He was seen by neurology and did not recommend any additional work up. Recommended discharge home with his [employer] antiplatelets and statin and OP follow up. Also cleared by PT OT for discharge home. No needs identified at discharge. He is anxious to go home. His symptoms were attributed to dehydration and sleep deprivation. Recommended adequate hydration and rest and 3 days excuse from work as per neuro recommendation. Recommended quitting smoking. Total Time Total Time Spent Total Time Spent (In Minutes): 35 Discharge Plan Discharge Items Patient Disposition: Home - Self-Care Reason For Visit: AMS Discharge Diagnosis: AMS Activity: Resume your previous activity Non-emergency contact: Primary Care Provider Call non-emergency contact if: you have any medication questions, your symptoms worsen and you have a fever Follow-up/Referrals: PCP,NO [Primary Care Provider] - Diet: Heart Healthy Addtl Attending Provider Instructions: You do not have a new stroke. Recommend adequate hydration and sleep. You can go back to work after 3 days. Follow up with neurology in the office in the next 3-4 weeks. Pending Studies at Discharge: No Stand-Alone Forms: [facility], Work/School Release, Smoking Cessation Medications and DC Order Prescriptions: Continued atorvastatin 40 mg tablet 40 mg PO DAILY aspirin 325 mg tablet 325 mg PO DAILY clopidogrel 75 mg tablet 37.5 mg PO UD Rx Instructions: to take half tab once every 72hrs Discharge Orders: Discharge Order (Routine); Ordered 03/07/22 Ordered By: Reynold Sweet Admission Data Admit Date/Time: 03/07/22 03:16 Attending Provider: Reynold Sweet Admit Provider: Deuce García Primary Care Provider: PCP,NO Other Providers: Deuce García ; Kosta Amtao ; Himanshu Rocha ; Gillian Cordoba ; Abby Bedoya ; Lele Garrett ; Abby Workman ; Renny Machado ; Tala Olivares ; Dylan Khan ; Briana Damon ; Cat Diaz ; Agustina Brady Other Interventions: Discharge Summary Assessment (RN) Last Done: 03/07/22 16:49
== END 2022-03-07 19:54 | disposition home or self-care (01) | DRG 72 ==
LOC: ED 00:15 → EDINP 03:16 → 2N 04:43